=== PATIENT | male | born 1970 | race Caucasian/White ===

== ENCOUNTER 2017-08-12 11:13 | Inpatient (IN) | payer OTHER ==
[~2017-08-12] VITALS: Ht 170.2 cm; Wt 76.0 kg
--- NOTE | 2017-08-12 11:13 | NUR ---
BIBRA 76 FROM HOME C/O LEFT SIDE WEAKNESS AND DIZZINESS, LKW 1015 [id number], FACE SYMMETRICAL. A/OX 4, BREATHING EVEN AND UNLABORED. NO SOB, NAD, HYPERTENSIVE ON ARRIVAL. IV ESTABLISHED ON LAC, 20G EN ROUTE. SAFETY AND COMFORT MEASURES IN PLACE. MD CALLED FOR EVALUATION.
--- NOTE | 2017-08-12 11:14 | NUR ---
NIHSS COMPLETED, SCORE 0, BUT PATIENT UNABLE TO PERFORM NOSE TO FINGER TOUCH WITH LEFT HAND PRECISELY. MD INFORMED FOR FURTHER EVALUATION.
--- NOTE | 2017-08-12 11:18 | NUR ---
SECOND IV STARTED ON RAC, 18G.
--- NOTE | 2017-08-12 11:20 | NUR ---
ACTIVATED CODE STROKE.
--- NOTE | 2017-08-12 11:25 | NUR ---
PATIENT TAKEN TO CT VIA STRETCHER.
--- NOTE | 2017-08-12 11:25 | NUR ---
[id number] AT BS OMKAR RAHMAN MADE AWARE
--- NOTE | 2017-08-12 11:28 | NUR ---
CALL BACK FROM DR ÁLVAREZ,SPOKE WITH DR RICE
[2017-08-12 11:30] LABS: BASOPHILS % (AUTO) 0.6 % (0.0-2.0); EOSINOPHILS % (AUTO) 0.4 % (0.0-6.0); HEMATOCRIT 47 % (39-51); HEMOGLOBIN 15.1 g/dL (13.5-17.5); LYMPHOCYTES # (AUTO) 2.1 /CMM (0.8-4.8); LYMPHOCYTES % (AUTO) 25.8 % (20.0-44.0); MEAN CORPUSCULAR HGB CONC 32 g/dl (31.0-36.0); MEAN CORPUSCULAR VOLUME 68 fL (80-96); MONOCYTES # (AUTO) 0.5 /CMM (0.1-1.30); MONOCYTES % (AUTO) 6.1 % (2.0-12.0); NEUTROPHILS # (AUTO) 5.5 /CMM (1.8-8.9); NEUTROPHILS % (AUTO) 67.1 % (43.0-81.0); PLATELET COUNT (AUTO) 299 /CMM (150-450); RDW COEFFICIENT OF VARIATION 13.4 (11.5-15.0); RED BLOOD CELL COUNT(AUTO) 6.92 MIL/uL (4.5-6.0); WHITE BLOOD COUNT (AUTO) 8.1 K/uL (4.3-11.0)
--- NOTE | 2017-08-12 11:33 | NUR ---
RETURNED FROM CT HEAD WO IN STABLE CONDITION.
[2017-08-12 11:34] LABS: CALCIUM, SERUM 8.4 mg/dL (8.5-10.1); CREATININE 0.9 mg/dL (0.6-1.3); POTASSIUM 3.5 mmol/L (3.5-5.1)
--- NOTE | 2017-08-12 11:35 | NUR ---
PATIENT TAKEN BACK TO RADIOLOGY FOR CTA HEAD/CAROTID VIA STRETCHER.
[2017-08-12 11:37] LABS: INR 0.95 (0.85-1.15)
[2017-08-12] MEDS ORDERED: IOHEXOL-350 100 ML VIAL IV ONE (11:37)
[2017-08-12] MEDS ORDERED: IV NS 0.9% 500 ML IV ONE (11:37)
[2017-08-12] MEDS ORDERED: CT SWABBABLE VALVE TRANS SET 1 EA INFUS.SET MC ONE (11:37)
[2017-08-12 11:43] LABS: TROPONIN I 0.044 ng/mL (0.00-0.056)
--- NOTE | 2017-08-12 11:44 | NUR ---
PATIENT RETURNED FROM CT IN STABLE CONDITION.
[2017-08-12] MEDS ORDERED: LABETALOL HCL IV 100MG VIAL ONE (11:55)
[2017-08-12] MEDS ORDERED: LABETALOL HCL IV 100MG VIAL IV ONE (12:00)
--- NOTE | 2017-08-12 12:00 | NUR ---
PATIENT HYPERTENSIVE, 186/117, PULSE 75. DR. RICE INFORMED AND VERBALLY ORDERED LABETOLOL 20MG IVP. MED ORDERED, TO BE ADMINISTERED.
--- NOTE | 2017-08-12 13:20 | NUR ---
TEXTED DR. NUNEZ FOR MRI APPROVAL.
--- NOTE | 2017-08-12 13:21 | NUR ---
DR. NUNEZ TEXTED BACK ON HOLD FOR NOW HE WILL LET US KNOW.
--- NOTE | 2017-08-12 13:26 | NUR ---
REPORT GIVEN TO ELIZABETH MULLINS FOR ELIN UPON ADMISSION
[2017-08-12] MEDS ORDERED: ASPIRIN 325 MG TABLET PO ONE (13:30)
[2017-08-12] MEDS ORDERED: Z GUARD REMEDY 2 OZ OINT TP PRN (14:30)
[2017-08-12] MEDS ORDERED: ZOLPIDEM TARTRATE 5 MG TABLET PO PRN (14:30)
[2017-08-12] MEDS ORDERED: ONDANSETRON HCL/PF 4 MG/2 ML VIAL IVP PRN (14:30)
[2017-08-12] MEDS ORDERED: hydrALAZINE HCL 50 MG TABLET PO STA (15:01)
--- NOTE | 2017-08-12 15:15 | NUR ---
PATIENT TRANSPORTED TO [facility] VIA ACLS PROTOCOL. RNELIZABETH TO PROVIDE ELIN.
[2017-08-12] MEDS: VALSARTAN 80 MG TABLET PO SCH (15:22)
[2017-08-12] MEDS: AMLODIPINE BESYLATE 10 MG TABLET PO SCH (15:23)
[2017-08-12] MEDS ORDERED: ACETAMINOPHEN 325 MG TABLET PO PRN (15:30)
--- NOTE | 2017-08-12 15:30 | NUR ---
RN ADMITTING NOTES: REPORT REC'D BY CN. PT TRANSFERRED VIA GURNEY ACCOMPANIED BY MARKETING OPERATIONS CONSULTANT & TRAVEL OCCUPATIONAL THERAPIST, ADMITTED AT RM 118/2, ISA[facility] STATUS. ROUTINE ASSESSMENT DONE. PT IS A/O X 4, NOT IN ANY DISTRESS. PLACED ON TELEMONITOR, SR W/ HR 72 BPM. ON ROOM AIR, NO SOB. HAS 2 IV LINE ACCESS: L AC G18 & R AC G20, BOTH FLUSHING WELL, NO S/SX OF INFECTION/INFILTRATION NOTED. PT C/O MILD LEFT SIDED WEAKNESS. SWALLOW EVAL DONE AT BEDSIDE, NO APPARENT PROBLEM. BP 190/101, BP MEDS GIVEN ORDERED WELL TYLENOL FOR H/A. NO SKIN ISSUES NOTED. BELONGINGS CHECKED BY TRAVEL OCCUPATIONAL THERAPIST. STROKE EDUCATION & PACKET PROVIDED TO THE PT W/ AT BEDSIDE. PT ORIENTED TO ROOM. PROVIDED COMFORT & SAFETY MEASURES. BED KEPT LOW & IN LOCKED POS. CALL LIGHT PLACED W/IN REACH. WILL CONTINUE TO MONITOR & ATTEND PT NEEDS. 1700h BP RECHECKED 154/98.
[2017-08-12 16:00] VITALS: BP 190/101
--- NOTE | 2017-08-12 18:46 | NUR ---
RN CLOSING NOTES: NO ACUTE CHANGES NOTED W/ SHIFT. PT REMAINS A/O X 4, NO SOB WHILE ON ROOM AIR, STILL SR ON THE TELEMONITOR. IV LINE ACCESS ON R AC G18 AND L AC G20, KEPT PATENT & INTACT W/ NO S/SX OF INFECTION/INFILTRATION NOTED. PT RESTING COMFORTABLY AT THIS TIME. AT BEDSIDE. KEPT WELL RESTED. NEEDS ATTENDED. BED KEPT LOW & IN LOCKED POS. CALL LIGHT W/IN REACH. WILL ENDORSE TO PM RN FOR ELIN.
--- NOTE | 2017-08-12 19:30 | NUR ---
RECEIVED PATIENT IN BED, AT THE BEDSIDE. PATIENT IS RESTING , NO DISTRESS NOTED CONTINUE TO MONITOR
[2017-08-12 20:00] VITALS: BP 166/92
--- NOTE | 2017-08-12 20:30 | NUR ---
VITAL SIGNS ARE DONE, BP ELEVATED- HYDRALAZINE WILL BE GIVEN ORDERED. PHYSICAL ASSESSMENT DONE- CHARTED IN THE FLOW SHEET CONTINUE TO MONITOR
[2017-08-12] MEDS: hydrALAZINE HCL 25 MG TABLET PO PRN (20:38)
[2017-08-12] MEDS: ATORVASTATIN 10 MG TABLET PO SCH (21:55)
[2017-08-12 21:56] VITALS: BP 172/95
--- NOTE | 2017-08-12 21:59 | NUR ---
BP STILL ELEVATED AFTER GIVEN HYDRALAZINE ORDERED LEFT ARM -172/95 HR 72 RIGHT ARM 163/101 HR 70- ALLIE THOMAS DNP NOTIFIED AWAITING FOR ORDERS
--- NOTE | 2017-08-12 22:54 | NUR ---
REPORT GIVEN TO HARPREET JAUREGUI FOR CONTINUE OF CARE
[2017-08-13] VITALS (14 sets, daily range): BP systolic 118–172; BP diastolic 73–104
[2017-08-13] MEDS: hydrALAZINE HCL 25 MG TABLET PO PRN ×2 (04:23→13:54)
[2017-08-13 06:34] LABS: BASOPHILS % (AUTO) 0.4 % (0.0-2.0); EOSINOPHILS % (AUTO) 0.9 % (0.0-6.0); HEMATOCRIT 47 % (39-51); HEMOGLOBIN 15.2 g/dL (13.5-17.5); LYMPHOCYTES # (AUTO) 2.1 /CMM (0.8-4.8); LYMPHOCYTES % (AUTO) 22.2 % (20.0-44.0); MEAN CORPUSCULAR HGB CONC 33 g/dl (31.0-36.0); MEAN CORPUSCULAR VOLUME 69 fL (80-96); MONOCYTES # (AUTO) 0.6 /CMM (0.1-1.30); NEUTROPHILS # (AUTO) 6.7 /CMM (1.8-8.9); NEUTROPHILS % (AUTO) 70.5 % (43.0-81.0); PLATELET COUNT (AUTO) 310 /CMM (150-450); RDW COEFFICIENT OF VARIATION 14.7 (11.5-15.0); RED BLOOD CELL COUNT(AUTO) 6.78 MIL/uL (4.5-6.0); WHITE BLOOD COUNT (AUTO) 9.5 K/uL (4.3-11.0)
[2017-08-13 06:51] LABS: ALBUMIN 3.8 g/dL (3.4-5.0); BILIRUBIN,TOTAL 0.9 mg/dL (0.2-1.0); CALCIUM, SERUM 8.9 mg/dL (8.5-10.1); CREATININE 0.8 mg/dL (0.6-1.3); MAGNESIUM 2.2 mg/dL (1.8-2.4); PHOSPHORUS 3.3 mg/dL (2.5-4.9); POTASSIUM 3.8 mmol/L (3.5-5.1); TOTAL PROTEIN, SERUM 8.1 g/dL (6.4-8.2)
[2017-08-13 07:06] LABS: THYROID STIMULATING HORMONE 0.384 uIU/mL (0.358-3.74)
--- NOTE | 2017-08-13 07:50 | NUR ---
RN NOTES RECEIVED PT FROM RECORDIST, A&0X3, ON ROOM AIR NO SOB OR DISTRESS NOTED. SR ON THE TELE SILVIO HR 67. RAC 18G, LAC 20G IV SITE INTACT NO IVF. AT BEDSIDE. BED LOCKED AND IN LOWEST POSITION, CALL LIGHT WITHIN REACH, SIDE RAILS UPX3, WILL CONT TO SILVIO.
[2017-08-13] MEDS: VALSARTAN 80 MG TABLET PO SCH (08:25)
[2017-08-13] MEDS: AMLODIPINE BESYLATE 10 MG TABLET PO SCH (08:25)
[2017-08-13] MEDS ORDERED: ASPIRIN EC 81 MG TABLET.DR PO SCH (09:00)
--- NOTE | 2017-08-13 09:00 | NUR ---
RN NOTES NEURO CHECK DONE. PT HAS NO SLURRED SPEECH OR SPEECH DIFFICULTY, NO FACIAL DROOPING, A&0X3, LEFT SIDED WEAKNESS NOTED UPPER AND LOWER EXT. NO DRIFT. WILL CONT TO SILVIO.
[2017-08-13] MEDS ORDERED: ENOXAPARIN SODIUM 40 MG/0.4 ML DISP.SYRIN SQ SCH (18:30)
--- NOTE | 2017-08-13 18:50 | NUR ---
RN NOTES ORDER TO ADMINISTER LOVENOX PER SAILAJA INGRAM PER STROKE PROTOCOL, MEDICATION VERIFIED AND ADMINISTERED.
[2017-08-13] MEDS ORDERED: protAMINE SULFATE 10 MG/ML VIAL IV ONE (19:00)
--- NOTE | 2017-08-13 19:15 | NUR ---
RN NOTES ORDER FROM SAILAJA INGRAM FOR PROTAMINE SULFATE, ADMINISTERED WITH PHARMACY AT BEDSIDE. ORDER TO TRANSFER PT TO ICU. PT TRANSFERRED IN STABLE CONDITION. REPORT GIVEN TO ICU NURSE.
--- NOTE | 2017-08-13 20:22 | NUR ---
RN NOTES 19:20 PM - RECEIVED TRANSFER PT FROM [facility] FOR CLOSE MONITORING, PT IS AOX3 ABLE TO VERBALIZED FEELINGS COMMUNICATE ABOUT WHAT HAPPENED WHY HIM AND CAME IN ER. NO SOB IV SITE ON RAC G 18 AND PAC G 20 INTACT AND PATENT. LEFT ARM WEAKNESS AND LEFT LEG NUMBNESS STATED BY PT. ABLE TO LIFT LEFT AND RIGHT ARM AND LEGS WITHOUT DRIFTING IN 10 SEC. DENIES BLURRING OF VISION. PER PT HE FELT THE SAME WAY WHEN HE CAME FROM ER. KEPT PT CLEAN AND DRY. EDUCATE PT AND FAMILY ABOUT THE S/SX OF STROKE. PT AND WELL AWARE. NEURO CHECK CLOSELY MONITOR.
[2017-08-13] MEDS: ATORVASTATIN 10 MG TABLET PO SCH (21:22)
--- NOTE | 2017-08-13 22:10 | NUR ---
RN NOTES PT IS WATCHING TV, DUE MEDICINE GIVEN ORDERED. NO CHANGE OF MENTAL STATUS. DENIES FURTHER WEAKNESS. LEFT ARM AND LT, LEG WEAKNESS STILL STATED AND NOTED BUT ABLE TO LIFT WITHOUT DRIFTING. RIGHT HAND AND RIGHT LEG IS NORMAL. NO ABNORMAL GAZE, ATTENTIVE., WILL CONTINUE TO MONITOR.
[2017-08-14] VITALS (34 sets, daily range): BP systolic 124–158; BP diastolic 55–100
--- NOTE | 2017-08-14 00:30 | NUR ---
RN NOTES PT ASLEEP ON BED AT BEDSIDE. NO SIGNIFICANT CHANGE OF CONDITION CHANGE. EASILY AROUSABLE, EXHIBIT USUAL MENTAL STATUS. AOX 3, ABLE TO MOVE BUE AND BLE WITHOUT DRIFTING. NO UNUSUAL WEKANESS .WILL CONT. TO MONITOR.
--- NOTE | 2017-08-14 02:15 | NUR ---
RN NOTES PT AWAKE AT THIS TIME. USED URINAL TO URINATE. NO CHANGE OF MENTAL STATUS LOC IN NORMAL, NO FURTHER MUSCLE WEAKNESS SHOWN. AFEBRILE. NORMAL GAZE, ATTENTIVE. VS WNL CONT TO MONITOR.
--- NOTE | 2017-08-14 04:00 | NUR ---
RN NOTES PT ASLEEP WELL ON BED. EASILY AROUSABLE NO SIGNIFICANT CHANGE OF CONDITION. AFEBRILE. VS WNL. NO ACTIVE BLEEDING NOTED, NO UNUSUAL WEAKNESS. CONTINUE TO MONITOR.
[2017-08-14 04:22] LABS: BASOPHILS % (AUTO) 0.5 % (0.0-2.0); EOSINOPHILS % (AUTO) 1.2 % (0.0-6.0); HEMATOCRIT 47 % (39-51); HEMOGLOBIN 15.2 g/dL (13.5-17.5); LYMPHOCYTES # (AUTO) 3.1 /CMM (0.8-4.8); LYMPHOCYTES % (AUTO) 32.4 % (20.0-44.0); MEAN CORPUSCULAR HGB CONC 33 g/dl (31.0-36.0); MEAN CORPUSCULAR VOLUME 68 fL (80-96); MONOCYTES # (AUTO) 0.6 /CMM (0.1-1.30); MONOCYTES % (AUTO) 6.7 % (2.0-12.0); NEUTROPHILS # (AUTO) 5.6 /CMM (1.8-8.9); NEUTROPHILS % (AUTO) 59.2 % (43.0-81.0); PLATELET COUNT (AUTO) 324 /CMM (150-450); RDW COEFFICIENT OF VARIATION 14.6 (11.5-15.0); RED BLOOD CELL COUNT(AUTO) 6.86 MIL/uL (4.5-6.0); WHITE BLOOD COUNT (AUTO) 9.5 K/uL (4.3-11.0)
[2017-08-14 05:03] LABS: CALCIUM, SERUM 8.7 mg/dL (8.5-10.1); CREATININE 0.9 mg/dL (0.6-1.3); MAGNESIUM 2.2 mg/dL (1.8-2.4); PHOSPHORUS 3.5 mg/dL (2.5-4.9); POTASSIUM 3.6 mmol/L (3.5-5.1)
--- NOTE | 2017-08-14 06:20 | NUR ---
RN NOTES NEURO CHECKED CONTINUE TO MONITOR. VS STABLE. DENIES PAIN. PT IS AOX3 NO UNUSUAL CHANGE OF MENTAL STATUS. NORMAL GAZE, LT SIDED WEAKNESS STILL COMPLAINED, LEFT HAND SHELF DRIER OPERATOR IS WEAK NO MUSCLE DRIFTING NOTED IN BOTH UPPER AND LOWER EXTREMITIES. NORMAL ARTICULATION , SMILE WITHOUT MUSCLE DROOPING, NO ATAXIA PRESENT. PT WANTED TO REST FROM DVT PUMP AT THIS TIME. EDUCATED PT AND REGARDING S/SX. OF STROKE, PREVENTION, AND WHEN TO CALL DURING EMERGENCY SITUATION. PATIENT VERBALIZED UNDERSTANDING AT BEDSIDE. WILL CONTINUE TO MONITOR CLOSELY.
--- NOTE | 2017-08-14 07:10 | NUR ---
RN INITIAL NOTES RECEIVED PT AWAKE, A/OX4. NO RESPIRATORY DISTRESS NOTED. NO SOB NOTED. DENIES CHEST PAIN. DENIES ANY PAIN. NO CHANGE IN LOC NOTED. STILL C/O LEFT SIDED WEAKNESS. IV LINES IN PLACE. PT ABLE TO AMBULATE WITH STAND BY ASSIST. PT CONTINENT. AT BEDSIDE. CALL LIGHT WITHIN REACH. WILL MONITOR.
[2017-08-14] MEDS: VALSARTAN 80 MG TABLET PO SCH (08:14)
[2017-08-14] MEDS: AMLODIPINE BESYLATE 10 MG TABLET PO SCH (08:14)
--- NOTE | 2017-08-14 09:00 | NUR ---
RN NOTES SEEN AND EXAMINED BY DR MOREAU. PT AWAKE, A/OX4. NO SOB NOTED. NO RESPIRATORY DISTRESS NOTED. DENIES ANY PAIN. HR 80S, SBP 140S. MD DISCUSSED PLAN OF CARE WITH PT AND , VERBALIZED UNDERSTANDING. MD ORDERED REPEAT CT HEAD WO CONTRAST. WILL CONTINUE TO MONITOR
--- NOTE | 2017-08-14 09:15 | NUR ---
RN NOTES PT BACK FROM CT HEAD WO CONTRAST. PLACED COMFORTABLY BACK TO BED. VS STABLE. WILL MONITOR
[2017-08-14] MEDS ORDERED: GADODIAMIDE 2.5 MMOL/5 ML VIAL ONE (12:39)
--- NOTE | 2017-08-14 18:46 | NUR ---
RN CLOSING NOTES PT REMAINS STABLE. NO SIGNIFICANT CHANGE NOTED. DENIES CHEST PAIN. NO CHANGE IN LOC NOTED. NO DEFICITS NOTED. ALL NEEDS ATTENDED AND MET. ASSISTANCE PROVIDED. WILL ENDORSE FOR CONTINUITY OF CARE.
--- NOTE | 2017-08-14 19:30 | NUR ---
IVU/RN RECEIVED PT AWAKE ALERT 0X4.MILD WEAKNESS ON LT. ARM AND FEELS PINS AND NEEDLES ON SAID ARM AND HEAVINESS.DENIES PAIN OR DISCOMFORT.
[2017-08-14] MEDS ORDERED: PRAZOSIN HCL 1 MG CAPSULE PO ONE (21:44)
[2017-08-14] MEDS: ATORVASTATIN 10 MG TABLET PO SCH (21:47)
[2017-08-14] MEDS: PRAZOSIN HCL 1 MG CAPSULE PO SCH (21:52)
[2017-08-15] VITALS (13 sets, daily range): BP systolic 122–157; BP diastolic 67–96
--- NOTE | 2017-08-15 | NUR ---
ICU/RN NEURO STATUS UNCHANGED.VITAL SIGNS STABLE.
--- NOTE | 2017-08-15 06:00 | NUR ---
ICU/RN OOB AND WALKED FEW STEPS WITHOUT INCIDENT.VITAL SIGNS STABLE.MILD WEAKNESS LT.ARM.OFFERS NO COMPLAINTS.
[2017-08-15 06:18] LABS: BASOPHILS % (AUTO) 0.4 % (0.0-2.0); EOSINOPHILS % (AUTO) 1.6 % (0.0-6.0); HEMATOCRIT 45 % (39-51); HEMOGLOBIN 14.7 g/dL (13.5-17.5); LYMPHOCYTES % (AUTO) 36.4 % (20.0-44.0); MEAN CORPUSCULAR HGB CONC 33 g/dl (31.0-36.0); MEAN CORPUSCULAR VOLUME 69 fL (80-96); MONOCYTES # (AUTO) 0.5 /CMM (0.1-1.30); MONOCYTES % (AUTO) 6.5 % (2.0-12.0); NEUTROPHILS # (AUTO) 4.5 /CMM (1.8-8.9); NEUTROPHILS % (AUTO) 55.1 % (43.0-81.0); PLATELET COUNT (AUTO) 297 /CMM (150-450); RDW COEFFICIENT OF VARIATION 14.9 (11.5-15.0); RED BLOOD CELL COUNT(AUTO) 6.58 MIL/uL (4.5-6.0); WHITE BLOOD COUNT (AUTO) 8.1 K/uL (4.3-11.0)
[2017-08-15 06:37] LABS: CALCIUM, SERUM 8.6 mg/dL (8.5-10.1); CREATININE 0.9 mg/dL (0.6-1.3); PHOSPHORUS 3.3 mg/dL (2.5-4.9); POTASSIUM 3.9 mmol/L (3.5-5.1)
--- NOTE | 2017-08-15 07:29 | NUR ---
FIRE CONTROL SYSTEM INSTALLER RECEIVED PATIENT FROM THE PREVIOUS SHIFT. PATIENT IS IN BED. RESTING COMFORTABLY. NO ACUTE DISTRESS. ABLE TO VERBALIZE NEEDS LEFT HAND WOOD TYPE FINISHER WEAKNESS NOTED COMPARED TO RIGHT HAND. NEUROLOGIST AWARE. WILL CONTINUE TO MONITOR AND PROVIDE CARE.
[2017-08-15] MEDS: METFORMIN 500 MG TABLET PO SCH ×2 (08:18→18:25)
[2017-08-15] MEDS: AMLODIPINE BESYLATE 10 MG TABLET PO SCH (08:18)
[2017-08-15] MEDS: VALSARTAN 80 MG TABLET PO SCH (08:18)
--- NOTE | 2017-08-15 10:00 | NUR ---
FELT WASHING MACHINE TENDER FROM ICU RECEIVED REPORT FROM HARPREET GUNN VIA PHONE. PT. WAS BROUGHT TO ROOM 315 BED 2 IN STABLE CONDITION. PT. IS A&OX3. URINAL IS AT BEDSIDE. BED IS IN LOWEST, AND LOCKED POSITION. 2 SIDE RAILS UP, AND INSTRUCTED PT. TO USE CALL LIGHT FOR ASSISTANCE. ALL NEEDS MET AT THIS TIME. WILL CONTINUE TO ASSESS AND MONITOR.
--- NOTE | 2017-08-15 10:04 | NUR ---
ACCOUNT ENGINEER TRANSFERRED THE PATIENT TO [facility] LEVEL OF CARE ON STABLE CONDITIONS.
[2017-08-15] MEDS: ACETAMINOPHEN 325 MG TABLET PO PRN (10:58)
--- NOTE | 2017-08-15 17:00 | NUR ---
RN NOTES PT. IS IN STABLE CONDITION, A&OX4. NO S/S OF ACUTE DISTRESS. PT.'S AT BEDSIDE. DISCUSSED EDUCATION ABOUT NEW ONSET DX. OF DIABETES, AND STROKE. PROVIDED PT. A PAMPHLET ABOUT STROKE, AND DISCUSSED PT.'S RISK FACTORS. ENCOURAGED PT. TO FOLLOW UP WITH PRIMARY CARE PHYSICIAN IN 1 WEEK. REPORT WAS ENDORSED TO HARPREET WHALEY.
--- NOTE | 2017-08-15 17:10 | NUR ---
RECEIVED PT. ALERT AND ORIENTEDX4,FAMILY AT BEDSIDE.NO COMPLAINTS.
--- NOTE | 2017-08-15 19:20 | NUR ---
SERVICE SECRETARY OPENING NOTE RECEIVED PATIENT IN BED, ALERT ORIENTED X4. ON ROOM AIR TOLERATING WELL, RESPIRATIONS EVEN AND UNLABORED, IN NO APPARENT DISTRESS OR DISCOMFORT AT THIS TIME. NO FACIAL ASYMMETRY NOTED, SPEECH IS CLEAR. DENIES PAIN AND SOB. ABLE TO MAKE NEEDS KNOWN. PATIENT WITH RAC IVC 18G AND LAC IVC WITH 20G, PATENT AND INTACT, NO FLUIDS RUNNING AT THIS TIME. ALL NEEDS ATTENDED, KEPT CLEAN AND COMFORTABLE. SAFETY MEASURES IN PLACE, BED IN LOW LOCKED POSITION, SIDE RAILS UP X2, CALL LIGHT WITHIN EASY REACH, WILL CONTINUE TO MONITOR.
[2017-08-15] MEDS: ATORVASTATIN 10 MG TABLET PO SCH (21:17)
[2017-08-15] MEDS: PRAZOSIN HCL 1 MG CAPSULE PO SCH (21:17)
[2017-08-16] VITALS: BP 116/76
[2017-08-16 04:00] VITALS: BP 131/76
[2017-08-16 07:14] LABS: BASOPHILS % (AUTO) 0.5 % (0.0-2.0); EOSINOPHILS % (AUTO) 1.6 % (0.0-6.0); HEMATOCRIT 46 % (39-51); HEMOGLOBIN 14.9 g/dL (13.5-17.5); LYMPHOCYTES # (AUTO) 2.8 /CMM (0.8-4.8); LYMPHOCYTES % (AUTO) 38.9 % (20.0-44.0); MEAN CORPUSCULAR HGB CONC 33 g/dl (31.0-36.0); MEAN CORPUSCULAR VOLUME 69 fL (80-96); MONOCYTES # (AUTO) 0.5 /CMM (0.1-1.30); MONOCYTES % (AUTO) 6.3 % (2.0-12.0); NEUTROPHILS # (AUTO) 3.8 /CMM (1.8-8.9); NEUTROPHILS % (AUTO) 52.7 % (43.0-81.0); PLATELET COUNT (AUTO) 292 /CMM (150-450); RDW COEFFICIENT OF VARIATION 14.5 (11.5-15.0); RED BLOOD CELL COUNT(AUTO) 6.64 MIL/uL (4.5-6.0); WHITE BLOOD COUNT (AUTO) 7.3 K/uL (4.3-11.0)
[2017-08-16 07:30] LABS: CALCIUM, SERUM 8.9 mg/dL (8.5-10.1); CREATININE 0.8 mg/dL (0.6-1.3); MAGNESIUM 2.1 mg/dL (1.8-2.4); PHOSPHORUS 3.8 mg/dL (2.5-4.9); POTASSIUM 4.3 mmol/L (3.5-5.1)
--- NOTE | 2017-08-16 07:55 | NUR ---
CRYSTALLOGRAPHER CLOSING NOTE PATIENT IN HIS ROOM WALKING SLOWLY AROUND WITH ASSISTANCE OF HIS AND THE WALKER, ALERT ORIENTED X4. ON ROOM AIR TOLERATING WELL, RESPIRATIONS EVEN AND UNLABORED, IN NO APPARENT DISTRESS OR DISCOMFORT AT THIS TIME. NO FACIAL ASYMMETRY NOTED, SPEECH IS CLEAR. DENIES PAIN AND SOB. ABLE TO MAKE NEEDS KNOWN. PATIENT WITH RAC IVC 18G AND LAC IVC WITH 20G, PATENT AND INTACT, NO FLUIDS RUNNING AT THIS TIME. ALL NEEDS ATTENDED, KEPT CLEAN AND COMFORTABLE. SAFETY MEASURES IN PLACE, BED IN LOW LOCKED POSITION, SIDE RAILS UP X2, CALL LIGHT WITHIN EASY REACH, WILL ENDORSE TO AM NURSE FOR ELIN.
--- NOTE | 2017-08-16 07:56 | NUR ---
TOOL STORAGE ATTENDANT NOTES Patient received sitting on the bed with . A&O x4, with at bedside. No pain/distress noted or reported. Safety measures in place. Reminded patient to call for any assistance needed. Call light within reach.
[2017-08-16 08:00] VITALS: BP 116/79
[2017-08-16] MEDS: METFORMIN 500 MG TABLET PO SCH ×2 (08:35→16:45)
[2017-08-16] MEDS: VALSARTAN 80 MG TABLET PO SCH (08:35)
[2017-08-16] MEDS: AMLODIPINE BESYLATE 10 MG TABLET PO SCH (09:33)
[2017-08-16 12:00] VITALS: BP 132/80
[2017-08-16 16:00] VITALS: BP 153/82
--- NOTE | 2017-08-16 18:47 | NUR ---
MS RN CLOSING NOTES NO changes in LOC. Complaints of sore/ache pain on shoulder area, relieved with inactivity. Patient is ambulatory with walker and performed physical activity with no shortness of breath reported or noted. All needs anticipated and met. at bedside. Safety measures in place. Call light within reach. Bed in lowest position. Will endorse to oncoming nurse.
--- NOTE | 2017-08-16 19:36 | NUR ---
MANAGER SHAREPOINT OPENING NOTE RECEIVED PATIENT IN BED, ALERT ORIENTED X4. ON ROOM AIR TOLERATING WELL, RESPIRATIONS EVEN AND UNLABORED, IN NO APPARENT DISTRESS OR DISCOMFORT AT THIS TIME. NO FACIAL ASYMMETRY NOTED, SPEECH IS CLEAR. DENIES PAIN AND SOB. ABLE TO MAKE NEEDS KNOWN. PATIENT WITH RAC IVC 18G AND LAC IVC WITH 20G, PATENT AND INTACT, NO FLUIDS RUNNING AT THIS TIME.PATIENT AMBULATES WITH WALKER AND STANDBY ASSISTANCE, FAMILY AT BEDSIDE, ALL NEEDS ATTENDED, KEPT CLEAN AND COMFORTABLE. SAFETY MEASURES IN PLACE, BED IN LOW LOCKED POSITION, SIDE RAILS UP X2, CALL LIGHT WITHIN EASY REACH, WILL CONTINUE TO MONITOR.
[2017-08-16 20:00] VITALS: BP 139/90
[2017-08-16] MEDS: ACETAMINOPHEN 325 MG TABLET PO PRN (21:33)
[2017-08-16] MEDS: PRAZOSIN HCL 1 MG CAPSULE PO SCH (21:33)
[2017-08-16] MEDS: ATORVASTATIN 10 MG TABLET PO SCH (21:33)
--- NOTE | 2017-08-17 07:07 | NUR ---
AMPOULE FILLER AND SEALER CLOSING NOTE PATIENT IN HIS ROOM SITTING ON THE BED. ALERT ORIENTED X4. ON ROOM AIR TOLERATING WELL, RESPIRATIONS EVEN AND UNLABORED, IN NO APPARENT DISTRESS OR DISCOMFORT AT THIS TIME. NO FACIAL ASYMMETRY NOTED, SPEECH IS CLEAR. DENIES PAIN AND SOB. ABLE TO MAKE NEEDS KNOWN. PATIENT WITH RAC IVC 18G AND LAC IVC WITH 20G SL PATENT AND INTACT, NO FLUIDS RUNNING AT THIS TIME. ALL NEEDS ATTENDED, KEPT CLEAN AND COMFORTABLE. SAFETY MEASURES IN PLACE, BED IN LOW LOCKED POSITION, SIDE RAILS UP X2, CALL LIGHT WITHIN EASY REACH, WILL ENDORSE TO AM NURSE FOR ELIN.
--- NOTE | 2017-08-17 07:36 | NUR ---
RN MS OPENING NOTES RECEIVED PATIENT IN BED AWARE AND ALERT; IN STABLE CONDITION. VERBALLY RESPONSIVE, ABLE TO MAKE NEEDS KNOWN. BREATHING EVEN AND UNLABORED. NO COMPLAINTS OF PAIN OR DISCOMFORT AT THIS TIME. SPEECH IS CLEAR. IV LINES PATENT AND INTACT. ABLE TO AMBULATE WITH WALKER AND 1 PERSON STAND BY ASSIST. KEPT CLEAN DRY AND COMFORTABLE. ALL NEEDS MET AND CARED FOR. CALL LIGHT WITHIN REACH. BED IN LOWEST LOCKED POSITION.
[2017-08-17 08:27] VITALS: BP 124/83
[2017-08-17] MEDS: METFORMIN 500 MG TABLET PO SCH (09:24)
[2017-08-17 09:25] VITALS: BP 124/83
[2017-08-17] MEDS: AMLODIPINE BESYLATE 10 MG TABLET PO SCH (09:25)
[2017-08-17] MEDS: VALSARTAN 80 MG TABLET PO SCH (09:25)
[2017-08-17] MEDS ORDERED: METF-440 PO (09:47)
[2017-08-17] MEDS ORDERED: VALS80TA2 PO (09:47)
[2017-08-17] MEDS ORDERED: AMLO10TA6 PO (09:47)
[2017-08-17] MEDS ORDERED: ATOR10TA PO (09:47)
[2017-08-17] MEDS ORDERED: PRAZ1CAP17 PO (09:47)
--- NOTE | 2017-08-17 11:34 | NUR ---
SW received a phone call from pt's RN Sandhya stating that pt. is requesting for a state disability application. SW met with pt. and his bedside and gave them the application and explained the process. Pt.'s was requesting about FMLA. SW informed her that she would have to get the form from human resources at her place of employment.
--- NOTE | 2017-08-17 12:50 | NUR ---
RN MS DISCHARGE NOTES PATIENT REMAINS IN STABLE CONDITION. WAS DISCHARGED TO HOME TODAY WITH , VIA PRIVATE CAR ALL DUE MORNING MEDS GIVEN PRIOR TO DISCHARGE. IVS WERE REMOVED FROM THE RIGHT AND LEFT AC. PATIENT WAS GIVEN A STROKE PREVENTION EDUCATION - VERBALIZED UNDERSTANDING. INSTRUCTED TO FOLLOW-UP WITH PRIMARY CARE PROVIDER POST-DISCHARGE AND TO CALL 911 IN CASE OF EMERGENCY - VERBALIZED UNDERSTANDING. PRESCRIPTION GIVEN TO PATIENT FOR ALL PRESCRIBED MEDICATIONS BY AUTOMOTIVE COLLISION ESTIMATOR TRISTIAN MARTIN WITH INSTRUCTIONS TO VISIT PHARMACY OF CHOICE TO FILL MEDICATIONS SOON POSSIBLE. VITAL SIGNS WNL. SKIN REMAINS INTACT. CLEAN, DRY, AND COMFORTABLE. PATIENT WAS ASSISTED OUT OF THE HOSPITAL VIA WHEELCHAIR BY CHILD AND FAMILY THERAPIST AND .
[2017-08-17 13:11] LABS: RENIN, PLASMA 1.396 ng/mL/hr (0.167-5.380)
== END 2017-08-17 12:36 | disposition home health service (06) | DRG 44 ==
LOC: ER 11:16 → TELE1 13:57 → TELE-TD 14:17 → ICU 08-13 19:31 → TELE 08-15 10:41 → MED 08-16 11:28
PROVIDERS: ADMIT Nurse Practitioner Acute Care; ATTEND Nurse Practitioner Acute Care
DX: I61.3 Nontraumatic intracerebral hemorrhage in brain stem (principal); E87.1 Hypo-osmolality and hyponatremia; I10 Essential (primary) hypertension; I16.9 Hypertensive crisis, unspecified; G81.94 Hemiplegia, unspecified affecting left nondominant side; E11.9 Type 2 diabetes mellitus without complications; E66.9 Obesity, unspecified; E78.5 Hyperlipidemia, unspecified; Z68.26 Body mass index [BMI] 26.0-26.9, adult; Z71.3 Dietary counseling and surveillance
CPT/HCPCS: 36415; 70450-TC; 70496-TC; 70498-TC; 70553-TC; 71045-TC; 80048-TC; 80053-TC; 80061-TC; 80305; 82088; 82962-TC; 83540-TC; 83735-TC; 84100-TC; 84244; 84443-TC; 84484-TC; 85025-TC; 85730-TC; 87081-TC; 92521; 93307-TC; 97112-TC; 97530-TC; A4606; J1650; J2720; J3490; J7040; Q9967; Z7610

== ENCOUNTER 2017-08-23 17:22 | Inpatient (IN) | payer OTHER ==
[~2017-08-23] VITALS: Ht 170.2 cm; Wt 77.1 kg
[~2017-08-23 17:22] MED LIST: AMLO10TA6 PO; ATOR10TA PO; METF-440 PO; PRAZ1CAP17 PO; VALS80TA2 PO
--- NOTE | 2017-08-23 17:23 | NUR ---
AAOX3, BIBRA 86 C/O LEFT SIDE FACIAL DROOPING AND LEFT SIDE BODY WEAKNESS X YESTERDAY 3PM. FK=[id number]/DL IN THE FIELD. RR IS EVEN AND UNLABORED WITH NAD NOTED. SKIN IS WARM AND DRY. PLACED ON THE MONITOR. IVHL L HAND 20G NOTED INSTANT POWDER SUPERVISOR. DR CURRY AT BS FOR EVAL.
[2017-08-23] MEDS ORDERED: IV NS 0.9% 1,000 ML BAG IV ONE (17:30)
[2017-08-23 17:35] LABS: BASOPHILS # (AUTO) 0.1 /CMM (0.0-0.2); BASOPHILS % (AUTO) 0.9 % (0.0-2.0); EOSINOPHILS % (AUTO) 0.5 % (0.0-6.0); HEMATOCRIT 46 % (39-51); HEMOGLOBIN 15.1 g/dL (13.5-17.5); LYMPHOCYTES # (AUTO) 3.6 /CMM (0.8-4.8); LYMPHOCYTES % (AUTO) 38.5 % (20.0-44.0); MEAN CORPUSCULAR HGB CONC 33 g/dl (31.0-36.0); MEAN CORPUSCULAR VOLUME 68 fL (80-96); MONOCYTES # (AUTO) 0.5 /CMM (0.1-1.30); MONOCYTES % (AUTO) 5.8 % (2.0-12.0); NEUTROPHILS # (AUTO) 5.1 /CMM (1.8-8.9); NEUTROPHILS % (AUTO) 54.3 % (43.0-81.0); PLATELET COUNT (AUTO) 383 /CMM (150-450); RDW COEFFICIENT OF VARIATION 12.8 (11.5-15.0); RED BLOOD CELL COUNT(AUTO) 6.73 MIL/uL (4.5-6.0); WHITE BLOOD COUNT (AUTO) 9.3 K/uL (4.3-11.0)
[2017-08-23 17:48] LABS: INR 0.95 (0.85-1.15)
[2017-08-23 17:58] LABS: CALCIUM, SERUM 9.7 mg/dL (8.5-10.1); CARBON DIOXIDE 27 mmol/L (21-32); CHLORIDE 101 mmol/L (98-107); CREATININE 0.8 mg/dL (0.6-1.3); GLUCOSE 150 mg/dL (74-106); POTASSIUM 3.8 mmol/L (3.5-5.1); SODIUM SERUM 138 mmol/L (136-145); UREA NITROGEN, BLOOD 14 mg/dL (7-18)
[2017-08-23 18:04] LABS: ALANINE AMINOTRANSFERASE 42 U/L (12-78); ALBUMIN 4.2 g/dL (3.4-5.0); ALKALINE PHOSPHATASE 95 U/L (46-116); ASPARTATE AMINOTRANSFERASE 17 U/L (15-37); BILIRUBIN,DIRECT 0.2 mg/dL (0.0-0.2); BILIRUBIN,TOTAL 0.7 mg/dL (0.2-1.0); TOTAL PROTEIN, SERUM 8.6 g/dL (6.4-8.2)
[2017-08-23 18:06] LABS: TROPONIN I < 0.017 ng/mL (0.00-0.056)
[2017-08-23 18:30] LABS: BAND % (MANUAL) 1 % (0.0-5.0); LYMPHOCYTES % (MANUAL) 37 % (16-48); MONOCYTES % (MANUAL) 4 % (0-11.0); NEUTROPHILS % (MANUAL) 56 (42-76); REACTIVE LYMPHOCYTES 2 % (0-0)
[2017-08-23 18:32] LABS: CHOLESTEROL 115 mg/dL (<200); HDL CHOLESTEROL 42 mg/dL (40-60); LDL 63 mg/dL (0-99); TRIGLYCERIDES 93 mg/dL (30-150)
--- NOTE | 2017-08-23 19:05 | NUR ---
GAVE REPORT TO CHRISSY FOR ELIN
--- NOTE | 2017-08-23 19:52 | NUR ---
CALLED DR NEFF ANSWERING SERVICE @ , LEFT A VOICEMAIL.
--- NOTE | 2017-08-23 20:04 | NUR ---
CALLED [employer] BRANCH LOGISTICS SUPERVISOR WAS PAGED.
--- NOTE | 2017-08-23 20:12 | NUR ---
PT IS COMFORTABLE AND WITHOUT PAIN AT THIS TIME. WILL CONTINUE TO MONITOR FOR ANY CHANGES DURING THE SHIFT.
--- NOTE | 2017-08-23 20:14 | NUR ---
PT ASSIGNED TO [facility] BED [id number]
--- NOTE | 2017-08-23 20:14 | NUR ---
Kirby mir in [place] - 08/23/17 at 2015 by PABLO [id number]
--- NOTE | 2017-08-23 20:27 | NUR ---
REPORT GIVEN TO RICHY
--- NOTE | 2017-08-23 20:49 | NUR ---
CALLED RADIOLOGY REGARDING NEEDED CTA. AWAITING FOR PATIENT TO BE TRANSPORTED BY PICTURE ENLARGER
[2017-08-23] MEDS ORDERED: CT SWABBABLE VALVE TRANS SET 1 EA INFUS.SET MC ONE (20:56)
[2017-08-23] MEDS ORDERED: IV NS 0.9% 500 ML IV ONE (20:56)
[2017-08-23] MEDS ORDERED: IOHEXOL-350 100 ML VIAL IV ONE (20:56)
--- NOTE | 2017-08-23 21:00 | NUR ---
CALLED RADIOLOGY FOR CTA.
--- NOTE | 2017-08-23 21:12 | NUR ---
PT TO CT.
[2017-08-23] MEDS ORDERED: Z GUARD REMEDY 2 OZ OINT TP PRN (21:30)
[2017-08-23] MEDS ORDERED: ONDANSETRON HCL/PF 4 MG/2 ML VIAL IVP PRN (21:30)
[2017-08-23] MEDS ORDERED: ZOLPIDEM TARTRATE 5 MG TABLET PO PRN (21:30)
[2017-08-23] MEDS ORDERED: ACETAMINOPHEN 325 MG TABLET PO PRN (21:30)
--- NOTE | 2017-08-23 21:53 | NUR ---
PER DR. GRACE PT OKAY TO TRANSFER TO TELE BED 321
--- NOTE | 2017-08-23 22:20 | NUR ---
PNEUMATIC HOIST OPERATOR ADMIN NOTE PT WAS TRANSFERRED BY ER VIA RNEY, UNABLE TO AMBULATE AT THIS TIME. PT IS A/O X4 ABLE TO MAKE NEEDS KNOWN, AT BEDSIDE. NO SIGNS OF SOB OR DISTRESS, BREATHING EVENLY AND UNLABORED ON RA. LEFT SIDED FACIAL DROOPING NOTED WITHOUT APHASIA. LEFT SIDED WEAKNESS AND WEAK LEFT HAND SENIOR QUALITY ASSURANCE ANALYST. PT WAS ABLE TO NOTE WHEN LEFT ARM BEGAN TO DROP AND WOULD QUICKLY CORRECT IT, COMPLAINTS FO LEFT ARM HEAVINESS.LEFT LEG MILD WEAKNESS. PT WAS ABLE TO SWALLOW WATER WELL WITH NO SIGNS OF ASPIRATION. STROKE EDUCATION PAMPHLET GIVEN TO PT AND I WENT THROUGH THE PAMPHLET WITH THE PATIENT AND . PT AND ORIENTED TO ROOM. BED IS IN LOW AND LOCKED POSITION, CALL LIGHT WITHIN REACH. WILL CONTINUE TO MONITOR PT
[2017-08-23] MEDS: ATORVASTATIN 10 MG TABLET PO SCH (22:21)
[2017-08-23] MEDS: PRAZOSIN HCL 1 MG CAPSULE PO SCH (22:22)
[2017-08-24] VITALS: BP_SYST 129; BP_SYST 140; BP_DIAS 80; BP_DIAS 96
[2017-08-24 04:00] VITALS: BP 129/85
[2017-08-24 04:24] LABS: BASOPHILS % (AUTO) 0.5 % (0.0-2.0); EOSINOPHILS % (AUTO) 1.1 % (0.0-6.0); HEMATOCRIT 44 % (39-51); HEMOGLOBIN 13.9 g/dL (13.5-17.5); LYMPHOCYTES # (AUTO) 2.9 /CMM (0.8-4.8); LYMPHOCYTES % (AUTO) 38.5 % (20.0-44.0); MEAN CORPUSCULAR HGB CONC 32 g/dl (31.0-36.0); MEAN CORPUSCULAR VOLUME 71 fL (80-96); MONOCYTES # (AUTO) 0.5 /CMM (0.1-1.30); MONOCYTES % (AUTO) 6.7 % (2.0-12.0); NEUTROPHILS % (AUTO) 53.2 % (43.0-81.0); PLATELET COUNT (AUTO) 338 /CMM (150-450); RDW COEFFICIENT OF VARIATION 14.1 (11.5-15.0); RED BLOOD CELL COUNT(AUTO) 6.12 MIL/uL (4.5-6.0); WHITE BLOOD COUNT (AUTO) 7.6 K/uL (4.3-11.0)
[2017-08-24 04:40] LABS: CALCIUM, SERUM 8.6 mg/dL (8.5-10.1); CREATININE 0.8 mg/dL (0.6-1.3); MAGNESIUM 1.8 mg/dL (1.8-2.4); PHOSPHORUS 3.7 mg/dL (2.5-4.9); POTASSIUM 3.7 mmol/L (3.5-5.1)
--- NOTE | 2017-08-24 06:40 | NUR ---
MODELER CLOSING NOTE PT IS IN BED SLEEPING, EASILY AROUSED. NO SIGNS OF SOB OR DISTRESS, BREATHING EVENLY AND UNLABORED ON RA. IS AT BEDSIDE. NO CHANGES THROUGHOUT THE SHIFT. PT CONTINUES TO HAVE LEFT SIDED WEAKNESS. ALL NEEDS WERE ANTICIPATED AND MET. BED IS IN LOW AND LOCKED POSITION, CALL LIGHT WITHIN REACH. WILL ENDORSE TO DAYSHIFT.
--- NOTE | 2017-08-24 07:20 | NUR ---
telehealth case manager initial notes Received patient in bed, asleep, head of bed, elevated, no SOB or distress noted. On room air and tolerated well. No facial grimace noted. at bedside. IV intact and patent, HL only. NPO as endorsed by clinical appeals reviewer RN. on tele monitor SR heart rate of 63. Call light with in patient reach, will continue to monitor accordingly.
[2017-08-24 08:00] VITALS: BP 144/88
--- NOTE | 2017-08-24 08:07 | NUR ---
telephone operators supervisor notes Dr Santos came seen and examined the patient and per MD no need for the patient to keep NPO. All orders carried out and noted.
[2017-08-24] MEDS: METFORMIN 500 MG TABLET PO SCH ×2 (08:12→17:09)
[2017-08-24] MEDS: AMLODIPINE BESYLATE 10 MG TABLET PO SCH (08:13)
[2017-08-24] MEDS: VALSARTAN 80 MG TABLET PO SCH (08:13)
[2017-08-24 09:43] LABS: APPEARANCE,URINE CLEAR (CLEAR); BILIRUBIN,URINE NEGATIVE (NEGATIVE); BLOOD, URINE NEGATIVE Ery/uL (NEGATIVE); COLOR,URINE DARK YELLO (YELLOW); KETONES,URINE TRACE (NEGATIVE); LEUKOCYTE ESTERASE ,URINE NEGATIVE (NEGATIVE); NITRITE, URINE NEGATIVE (NEGATIVE); PROTEIN,URINE NEGATIVE (NEGATIVE); UGLUCOSE NEGATIVE (NEGATIVE)
--- NOTE | 2017-08-24 13:00 | NUR ---
ms rn notes Spoke to Dr. Nj and informed about patient still having dizziness and ordered Meclizine 25 mg 1 tab PO Q6hrs PRN. Mentioned about putting patient on blood thinner and per MD contraindicated due to most recent hemorrhage. All orders carried out and noted. Will continue to monitor accordingly.
[2017-08-24] MEDS: MECLIZINE HCL 12.5 MG TABLET PO PRN (14:48)
[2017-08-24 15:53] VITALS: BP 139/83
--- NOTE | 2017-08-24 19:10 | NUR ---
RN OPENING NOTES PATIENT RECEIVED IN BED, ALERT AND ORIENTED, VERBALLY RESPONSIVE, NOTED WITH NO SOB, BREATHING EVEN AND UNLABORED, PT DENIES PAIN AT THIS TIME, IN NO ACUTE DISTRESS, SPOUSE AT BEDSIDE. ALL PATIENT'S NEEDS ATTENDED TO AT THIS TIME, BED IN LOW POSITION AND LOCKED IN PLACE. CALL LIGHT WITHIN EASY REACH. WILL CONTINUE TO MONITOR.
--- NOTE | 2017-08-24 19:13 | NUR ---
ms rn closing notes All needs provided, attended and anticipated. Patient is in stable condition. Endorsed to nest shift RN to continue care. Call light with in patient reach.
[2017-08-24] MEDS: HYDROCODONE/APAP 10/325MG 1 EA TABLET PO PRN (20:56)
[2017-08-24] MEDS: ATORVASTATIN 10 MG TABLET PO SCH (21:31)
[2017-08-24] MEDS: PRAZOSIN HCL 1 MG CAPSULE PO SCH (21:36)
[2017-08-24 23:05] VITALS: BP 126/86
[2017-08-25] MEDS: MECLIZINE HCL 12.5 MG TABLET PO PRN (03:45)
[2017-08-25] MEDS: HYDROCODONE/APAP 10/325MG 1 EA TABLET PO PRN ×2 (03:46→23:58)
--- NOTE | 2017-08-25 06:25 | NUR ---
RN CLOSING NOTES PATIENT ASLEEP IN BED, EASILY AROUSABLE, ALERT AND ORIENTED X 4, NO SOB, BREATHING EVEN AND UNLABORED. ALL PATIENT'S NEEDS ATTENDED TO THROUGHOUT THE SHIFT. NO CHANGES IN CONDITION. PLACED BED IN LOW POSITION AND LOCKED IN PLACE. CALL LIGHT PLACED WITHIN EASY REACH. PT'S AT BEDSIDE. WILL ENDORSE TO AM SHIFT NURSE FOR CONTINUITY OF CARE.
--- NOTE | 2017-08-25 07:30 | NUR ---
MS/RN Patient received Patient received from night manager. Sleeping soundly at this time, appears in no distress. at bedside, all questions and concerns addressed. Will continue to monitor and ensure safety.
[2017-08-25 08:00] VITALS: BP 135/78
[2017-08-25] MEDS: AMLODIPINE BESYLATE 10 MG TABLET PO SCH (08:23)
[2017-08-25] MEDS: METFORMIN 500 MG TABLET PO SCH ×2 (08:23→17:22)
[2017-08-25] MEDS: VALSARTAN 80 MG TABLET PO SCH (08:24)
--- NOTE | 2017-08-25 09:00 | NUR ---
MS/RN Medications No difficulty swallowing medications.
--- NOTE | 2017-08-25 09:50 | NUR ---
MS/RN S/B PT Seen by PT - unable to ambulate patient due to increased weakness. Awaiting review by .
--- NOTE | 2017-08-25 10:30 | NUR ---
MS/RN S/B Dr Caban Seen by Dr Caban - MRI brain with and without contrast ordered.
--- NOTE | 2017-08-25 10:33 | NUR ---
TEXTED DR. NUNEZ FOR MRI APPROVAL.
--- NOTE | 2017-08-25 11:09 | NUR ---
MS/RN MRI MRI check list completed and signed by patient's .
[2017-08-25] MEDS ORDERED: GADODIAMIDE 5 MMOL/10 ML VIAL IJ ONE (15:06)
[2017-08-25] MEDS ORDERED: GADODIAMIDE 2.5 MMOL/5 ML VIAL IJ ONE (15:06)
--- NOTE | 2017-08-25 15:24 | NUR ---
MS/RN MRI Patient back from MRI brain, no result as of yet. Patient remains in stable condition upon return.
[2017-08-25 16:00] VITALS: BP 135/78
--- NOTE | 2017-08-25 16:19 | NUR ---
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 Subacute mid pontine hemorrhage.
--- NOTE | 2017-08-25 16:24 | NUR ---
MS/RN Dr Caban paged Dr Caban paged via exchange to inform of results. Per , relay to Dr Santos.
--- NOTE | 2017-08-25 16:32 | NUR ---
MS/RN Dr Tmo Santos paged via exchange to inform of results. Awaiting call back.
--- NOTE | 2017-08-25 17:13 | NUR ---
MS/RN New orders New orders from Dr Santos: -2Decho -ASA
[2017-08-25] MEDS: ASPIRIN EC 325 MG TABLET.DR PO SCH (17:22)
--- NOTE | 2017-08-25 17:30 | NUR ---
MS/RN Dr Arsh Caban here to speak with patient regarding new result of MRI.
--- NOTE | 2017-08-25 18:27 | NUR ---
MS/RN End note Patient continues to have significant left sided weakness almost flaccid, unable to move arm at all. Has some feeling and sensation. Left leg has movement although not at prior level. Blurred vision noted to both eyes but more so on the left. Vital signs stable, blood pressure within normal range for patient and not elevated. Continues to deny pain. 2D echo in progress at bedside at this time. at bedside, requesting to speak with MD JOSIAH paged and made aware. All needs attended, will endorse to warehouse shift supervisor.
--- NOTE | 2017-08-25 18:44 | NUR ---
PERFORMED ECHOCARDIOGRAM ADVISED BY CHARGE NURSE (DWIGHT) DESPITE RECENT ECHO LAST 08/12/17 DUE TO RECENT CVA CONDITION OF PT.
--- NOTE | 2017-08-25 19:15 | NUR ---
RN OPENING NOTES PT AWAKE AND ALERT. BARRY AT BEDSIDE. NO COMPLAINTS OF PAIN OR SOB AT THIS TIME. PT HAS LEFT SIDED WEAKNESS. PT COMPLAINS OF DIZZINESS. WILL F/U. PT HAS LEFT HAND AND RIGHT AC #20 IV INTACT AND PATENT. SAFETY PRECAUTIONS IN PLACE. BED IN LOWEST LOCKED POSITION, X2 SIDE RAILS UP, CALL LIGHT WITHIN REACH, WILL CONTINUE TO MONITOR.
[2017-08-25 20:00] VITALS: BP 131/86
[2017-08-25] MEDS: ATORVASTATIN 10 MG TABLET PO SCH (21:06)
[2017-08-25] MEDS: PRAZOSIN HCL 1 MG CAPSULE PO SCH (21:06)
--- NOTE | 2017-08-25 23:58 | NUR ---
RN NOTES PT COMPLAINED OF LEFT SHOULDER PAIN 11/23. WILL ADMINISTER PRN [id number] AND CONTINUE MONITORING.
[2017-08-26] VITALS: BP 124/73
[2017-08-26 04:00] VITALS: BP 119/81
--- NOTE | 2017-08-26 06:50 | NUR ---
RN CLOSING NOTES PT RESTING IN BED. BARRY AT BEDSIDE. NO COMPLAINTS OF PAIN OR SOB AT THIS TIME. PT CONTINUES TO HAVE LEFT SIDED WEAKNESS. PT HAS LEFT HAND AND RIGHT AC #20 IV INTACT AND PATENT. SAFETY PRECAUTIONS IN PLACE. BED IN LOWEST LOCKED POSITION, X2 SIDE RAILS UP, CALL LIGHT WITHIN REACH, WILL ENDORSE TO DAY SHIFT NURSE FOR CONTINUITY OF CARE.
--- NOTE | 2017-08-26 07:30 | NUR ---
ENVELOPE MACHINE ADJUSTER NOTES PT IN BED, AWAKE, ALERT AND ORIENTED, NO COMPLAINT OF PAIN, RESPIRATIONS NORMAL, BARRY AT BEDSIDE, RECEIVED ASSISTANCE WITH REPOSITIONING, CALL LIGHT WITHIN REACH, NEEDS ATTENDED,
[2017-08-26 08:00] VITALS: BP 137/96
[2017-08-26] MEDS: METFORMIN 500 MG TABLET PO SCH (08:09)
[2017-08-26] MEDS: VALSARTAN 80 MG TABLET PO SCH (08:28)
[2017-08-26] MEDS: AMLODIPINE BESYLATE 10 MG TABLET PO SCH (08:28)
[2017-08-26] MEDS: ASPIRIN EC 325 MG TABLET.DR PO SCH ×3 (09:00→12:55)
--- NOTE | 2017-08-26 09:52 | NUR ---
MANAGER OF PURCHASING NOTES - NON-ADMIN Per Dr. Arsh PULIDO asa d/t recent history of ICH
--- NOTE | 2017-08-26 12:45 | NUR ---
SENIOR LEAD JAVA DEVELOPER NOTES - ORDER CLARIFICATION W/ NEW ORDERS Aspirin clarified with Dr. Arsh Weaver to give per New order of mild sliding scale Antithrombotic order - Hold for now. Continue with ASA treatment
[2017-08-26] MEDS ORDERED: INSULIN REGULAR, HUMAN 100 UNIT/ML 3 ML VIAL SQ PRN (13:00)
[2017-08-26] MEDS ORDERED: DEXTROSE 50%-WATER 50 ML DISP.SYRIN IV PRN (13:00)
[2017-08-26] MEDS ORDERED: Blood Sugar Diagnostic IN (14:23)
[2017-08-26] MEDS ORDERED: MECL12.582 PO (14:23)
[2017-08-26] MEDS ORDERED: ASPI-869 PO (14:23)
[2017-08-26] MEDS ORDERED: Hydrocodone/Apap 10/325MG PO (14:23)
[2017-08-26 16:00] VITALS: BP 130/77
--- NOTE | 2017-08-26 16:00 | NUR ---
FIRE APPARATUS SPRINKLER INSPECTOR NOTES PT SEEN BY PT AND ST, PT TOLERATING CURRENT DIET WELL, ASPIRATION PRECAUTIONS OBSERVED, PT SEEN BY DR. HERNANDEZ, DISCHARGE ORDER GIVEN, PT AND INFORMED, DISCHARGE AND MEDICATION INSTRUCTIONS PROVIDED TO PT AND , STROKE EDUCATION PROVIDED TO PT AND , VERBALIZED UNDERSTANDING, REPORT GIVEN TO GUNNAR OF [facility], BELONGINGS ACCOUNTED FOR, PICKED UP BY 2 AMBULANCE PERSONNEL, LEFT VIA GUERNEY IN STABLE CONDITION.
[2017-08-26] MEDS ORDERED: BLOOD SUGAR DIAGNOSTIC 1 EACH STRIP IN SCH (17:30)
== END 2017-08-26 18:23 | DRG 45 ==
LOC: ER 17:23 → TELE 20:17 → MED 08-24 08:59 → TELE 08-25 20:09
PROVIDERS: ADMIT Nurse Practitioner Acute Care; ATTEND Nurse Practitioner Acute Care
DX: I63.9 Cerebral infarction, unspecified (principal); I69.354 Hemiplegia and hemiparesis following cerebral infarction affecting left non-dominant side; I10 Essential (primary) hypertension; E11.9 Type 2 diabetes mellitus without complications; Z91.19 Patient's noncompliance with other medical treatment and regimen; E78.5 Hyperlipidemia, unspecified; Z87.891 Personal history of nicotine dependence; Z83.3 Family history of diabetes mellitus; Z82.49 Family history of ischemic heart disease and other diseases of the circulatory system; K21.9 Gastro-esophageal reflux disease without esophagitis; E66.9 Obesity, unspecified; Z68.26 Body mass index [BMI] 26.0-26.9, adult; Z79.82 Long term (current) use of aspirin; Z79.84 Long term (current) use of oral hypoglycemic drugs; Z79.899 Other long term (current) drug therapy
CPT/HCPCS: 36415; 70450-TC; 70496-TC; 70498-TC; 70553-TC; 71045-TC; 80048-TC; 80061-TC; 80076-TC; 81000-TC; 82962-TC; 83735-TC; 84100-TC; 84484-TC; 85025-TC; 85730-TC; 86850-TC; 87081-TC; 92521; 92526; 93307-TC; 97110-TC; 97112-TC; 97530-TC; A4606; A6402; J1815; J7030; J7040; J8597; Q9967; Z7610